=== PATIENT | male | born 1990 | race Hispanic/Latino ===

== ENCOUNTER 2021-12-18 20:58 | Emergency (ER) | payer OTHER ==
[2021-12-19] MEDS ORDERED: ACETAMINOPHEN W/CODEINE 300-30 MG TAB PO ONE (01:51)
[2021-12-19] MEDS ORDERED: predniSONE 20 MG TAB PO ONE (01:51)
--- NOTE | 2021-12-19 02:21 | Emergency Department Report ---
ED General Adult HPI - General Chief complaint: Neuro Symptoms/Deficit Stated complaint: NUMBNESS IN FACE Time Seen by Provider: 12/19/21 01:51 Source: patient, EMS Mode of arrival: Ambulatory Limitations: No Limitations - History of Present Illness Initial comments: Patient a 31-year-old male with recent dental procedures. Patient states he was treated at [facility] for migraine headache. But has since developed left- sided facial numbness to left cheek and jaw. Patient denies history of TMJ been no fevers or chills no history of HSV. No history of Damon's palsy. Patient arrived to ED via ambulance for concern of Damon's palsy.. Patient states symptoms have started to resolve as of 30 minutes ago. Headache is resolved. Patient appears well and nontoxic and with no acute distress. Patient is amatory with steady gait. Is alert and oriented x3. She denies focal weakness. Severity scale (0 -10): 7 - Related Data Previous Rx's Medication Instructions Recorded Last Taken Type Acetaminophen/Codeine [Tylenol 1 tab PO Q6H PRN #12 tab 12/19/21 Unknown Rx /Codeine # 3 tab] Acyclovir 400 mg PO BID 7 Days #14 tab 12/19/21 Unknown Rx predniSONE [Deltasone] 50 mg PO DAILY #5 tab 12/19/21 Unknown Rx Allergies Allergy/AdvReac Type Severity Reaction Status Date / Time No Known Allergies Allergy Verified 12/18/21 21:34 ED Review of Systems ROS: Stated complaint: NUMBNESS IN FACE Other details as noted in HPI Constitutional: denies: chills, fever, malaise Eyes: denies: eye pain, eye discharge, vision change ENT: denies: ear pain, throat pain Respiratory: denies: cough, shortness of breath, wheezing Cardiovascular: denies: chest pain, palpitations Gastrointestinal: denies: abdominal pain, nausea, diarrhea Genitourinary: denies: urgency, dysuria Musculoskeletal: denies: back pain, joint swelling, arthralgia Skin: denies: rash, lesions Neurological: headache, numbness (Left cheek). denies: paresthesias, confusion, abnormal gait, vertigo Psychiatric: anxiety. denies: depression Hematological/Lymphatic: denies: easy bleeding, easy bruising ED Past Medical Hx - Medications Home Medications: Home Medications Medication Instructions Recorded Confirmed Last Taken Type Acetaminophen/Codeine [Tylenol 1 tab PO Q6H PRN #12 tab 12/19/21 Unknown Rx /Codeine # 3 tab] Acyclovir 400 mg PO BID 7 Days #14 tab 12/19/21 Unknown Rx predniSONE [Deltasone] 50 mg PO DAILY #5 tab 12/19/21 Unknown Rx ED Physical Exam - General Limitations: No Limitations General appearance: alert, in no apparent distress - Head Head exam: Present: normocephalic, normal inspection - Expanded Head Exam Expanded Head exam: Absent: laceration, abrasion, contusion, hematoma - Eye Eye exam: Present: PERRL, EOMI. Absent: conjunctival injection, nystagmus Pupils: Present: normal accommodation - ENT ENT exam: Present: normal orophraynx, mucous membranes moist, TM's normal bilaterally, normal external ear exam - Expanded ENT Exam Expanded Ear exam: Present: normal external inspection Mouth exam: Present: tongue normal. Absent: trismus Teeth exam: Absent: dental caries, gingival enlargement Throat exam: Positive: normal inspection, other (Uvula midline no lesions no exudate no noted dental caries). Negative: tonsillar erythema, tonsillomegaly, tonsillar exudate - Neck Neck exam: Present: normal inspection, full ROM. Absent: tenderness, meningismus, lymphadenopathy, thyromegaly - Expanded Neck Exam Expanded Neck exam: Absent: midline deformity, anterior neck swelling, thyroid mass, carotid bruit, tracheal deviation - Respiratory Respiratory exam: Present: normal lung sounds bilaterally. Absent: respiratory distress, wheezes - Cardiovascular Cardiovascular Exam: Present: regular rate, normal rhythm, normal heart sounds. Absent: systolic murmur, diastolic murmur, rubs, gallop - GI/Abdominal GI/Abdominal exam: Present: soft, normal bowel sounds. Absent: distended, tenderness - Rectal Rectal exam: Present: deferred - Extremities Exam Extremities exam: Present: normal inspection, full ROM, normal capillary refill. Absent: tenderness - Back Exam Back exam: Present: normal inspection, full ROM. Absent: paraspinal tenderness, vertebral tenderness - Neurological Exam Neurological exam: Present: alert, oriented X3, CN II-XII intact, normal gait, reflexes normal. Absent: motor sensory deficit - Expanded Neurological Exam Expanded Patient oriented to: Present: person, place, time Speech: Present: fluid speech Cranial nerves: EOM's Intact: Normal, Gag Reflex: Normal, Tongue Deviation: Normal, Nystagmus: Normal, Facial Sensation: Abnormal Left (Left lateral cheek numbness to palpation most differential between dull and sharp), Facial Palsy with Forehead Movement: Normal, Facial Palsy without Forehead Movement: Normal Cerebellar function: Finger to Nose: Normal, Heel to Acosta: Normal, Romberg: Normal Upper motor neuron: Brian Neglect: Normal, Pronator Drift: Normal, Babinski Sign: Normal, Sensory Extinction: Normal Sensory exam: Upper Extremity Light Touch: Normal, Upper Extremity Pin Prick: Normal, Upper Extremity Temperature: Normal, UE 2 Point Discrimination: Normal, Lower Extremity Light Touch: Normal, Lower Extremity Pin Prick: Normal, Lower Extremity Temperature: Normal, LE 2 Point Discrimination: Normal Motor strength exam: RUE: 5, LUE: 5, RLE: 5, LLE: 5 DTR: knee (R): 1+, knee (L): 1+ Best Eye Response (Fortunato): (4) open spontaneously Best Motor Response (Fortunato): (6) obeys commands Best Verbal Response (Anderson): (5) oriented Fortunato Total: 15 - Psychiatric Psychiatric exam: Present: normal affect, normal mood - Skin Skin exam: Present: warm, dry, intact, normal color. Absent: rash ED Course Vital Signs 12/18/21 20:58 Temperature 97.9 F Pulse Rate 67 Respiratory 18 Rate Blood Pressure 120/70 [Right] O2 Sat by Pulse 98 Oximetry ED Medical Decision Making - Radiology Data Radiology results: report reviewed, image reviewed CT HEAD WITHOUT CONTRAST INDICATION / CLINICAL INFORMATION: left facial numbness. TECHNIQUE: CT head was performed without administration of intravenous contrast. All CT scans at this location are performed using CT dose reduction for ALARA by means of automated exposure contro l. COMPARISON: None available. FINDINGS: CEREBRAL HEMISPHERES: There is no evidence of large territorial infarction or significant abnormality of dutta-white matter differentiation. Ventricles within normal limits. No midline shift. Basal cisterns patent. HEMORRHAGE: None. CEREBELLUM / BRAINSTEM: No significant abnormality. ORBITS: No significant abnormality. SOFT TISSUES: No significant abnormality. SKULL: No significant abnormality. PARANASAL SINUSES / MASTOID AIR CELLS: Normal as visualized. ADDITIONAL FINDINGS: None. IMPRESSION: 1. No acute intracranial abnormality. Signer Name: Yudy Olson II, MD Signed: 12/19/2021 2:38 AM Workstation Name: [id number] Transcribed By: LALY Dictated By: YUDY OLSON II, MD Electronically Authenticated By: YUDY OLSON II, MD Signed Date/Time: 12/19/21237 DD/ 7 TD/TT: - Medical Decision Making CT normal there is no facial paralysis plan DC to home with prescriptions. Steroids, antivirals, follow-up with primary care doctor in 2 to 3 days. Return to emergency department should symptoms worsen. Patient verbalized agreement and understanding with discharge plan patient DC'd home in stable condition at this time. Critical care attestation.: If time is entered above; I have spent that time in minutes in the direct care of this critically ill patient, excluding procedure time. ED Disposition Clinical Impression: Left facial numbness Disposition: HOME / SELF CARE / HOMELESS Is pt being admited?: No Does the pt Need Aspirin: No Condition: Stable Instructions: Paresthesia Additional Instructions: Take medications as prescribed. Return to emergency department if symptoms worsen. Prescriptions: Acyclovir 400 mg PO BID 7 Days #14 tab predniSONE [Deltasone] 50 mg PO DAILY #5 tab Acetaminophen/Codeine [Tylenol /Codeine # 3 tab] 1 tab PO Q6H PRN #12 tab PRN Reason: pain headache Referrals: AIDAN CHURCHILL MD [Referring] - 3-5 Days ERICKSON VICENTE MD [Staff Physician] - 3-5 Days Forms: Work/School Release Form(ED) Time of Disposition: 02:56
--- NOTE | 2021-12-19 02:43 | Cat Scan Report ---
CT HEAD WITHOUT CONTRAST INDICATION / CLINICAL INFORMATION: left facial numbness. TECHNIQUE: CT head was performed without administration of intravenous contrast. All CT scans at this location are performed using CT dose reduction for ALARA by means of automated exposure control. COMPARISON: None available. FINDINGS: CEREBRAL HEMISPHERES: There is no evidence of large territorial infarction or significant abnormality of dutta-white matter differentiation. Ventricles within normal limits. No midline shift. Basal ciste rns patent. HEMORRHAGE: None. CEREBELLUM / BRAINSTEM: No significant abnormality. ORBITS: No significant abnormality. SOFT TISSUES: No significant abnormality. SKULL: No significant abnormality. PARANASAL SINUSES / MASTOID AIR CELLS: Normal as visualized. ADDITIONAL FINDINGS: None. IMPRESSION: 1. No acute intracranial abnormality. Signer Name: Bam Bell II, MD Signed: 12/19/2021 2:38 AM Workstation Name: [id number]
[2021-12-19] MEDS ORDERED: ACYCLOVIR 800 MG TAB PO ONE (02:51)
[2021-12-19 03:13] VITALS: BP 127/76
== END 2021-12-19 03:29 | disposition home or self-care (01) ==
LOC: ED 20:58
DX: R20.0 Anesthesia of skin (principal)
CPT/HCPCS: 70450; 99284